=== PATIENT | female | born 1950 | race Caucasian/White ===

== ENCOUNTER 2016-04-24 16:37 | Observation (INO) | payer MEDICARE, OTHER ==
[~2016-04-24] VITALS: Ht 165.1 cm; Wt 102.2 kg
[2016-04-24] MEDS ORDERED: ONDANSETRON INJ 2 MG/ML 2 ML VIAL IV STA (17:04)
[2016-04-24] MEDS ORDERED: SODIUM CHLORIDE 0.9% 500ML 500 ML IV STA (17:04)
[2016-04-24] MEDS ORDERED: METHYLPREDNISOLONE 125 MG VIAL IV STA (17:04)
[2016-04-24] MEDS ORDERED: LORAZEPAM 2 MG/ML 1 ML VIAL IV STA (17:04)
[2016-04-24 17:11] LABS: BASO % 0.7 %; BASO ABS # 0.07 K/uL (0-0.2); COMPLETE YES; EOS % 2.7 %; HEMATOCRIT 39.1 % (37-47); IG% 0.2 %; LYMPH % 32.7 %; LYMPH ABS # 3.06 K/uL (1.2-3.4); MEAN CELL VOLUME 86.3 fL (80-100); MEAN CORPUSCULAR HEMOGLOBIN 29.6 pg (25-34); MEAN CORPUSCULAR HGB CONC 34.3 g/dl (32-36); MEAN PLATELET VOLUME 10.2 fL (7.4-10.4); MONO % 9.2 %; NEUT % 54.5 %; PLATELET COUNT 252 K/uL (130-400); RED BLOOD COUNT 4.53 M/uL (4.2-5.4); WHITE BLOOD COUNT 9.37 K/uL (4.8-10.8)
[2016-04-24] MEDS ORDERED: ATEN25TA PO (17:23)
[2016-04-24] MEDS ORDERED: NIFE60TA57 PO (17:23)
[2016-04-24 17:28] LABS: ALT/SGPT 11 U/L (12-78); BLOOD UREA NITROGEN 21 mg/dl (7-18); BUN/CREATININE RATIO 22.1 (10-20); CARBON DIOXIDE 25 mmol/L (21-32); CHLORIDE 103 mmol/L (98-107); CREATININE 0.94 mg/dl (0.60-1.20); GLUCOSE 111 mg/dl (70-99); MAGNESIUM 2.1 mg/dl (1.8-2.4); POTASSIUM 3.6 mmol/L (3.5-5.1); SODIUM 140 mmol/L (136-145)
[2016-04-24 17:33] LABS: ALKALINE PHOSPHATASE 96 U/L (45-117); AST/SGOT 18 U/L (15-37); CKMB/CK RATIO 1.5 (0-3.0)
--- NOTE | 2016-04-24 17:35 | DIAGNOSTIC IMAGING REPORT ---
HEAD CT NONCONTRAST CT DOSE: 623.48 mGy.cm HISTORY: HTN, dizzy, vomiting TECHNIQUE: Multiaxial CT images of the head were performed without the use of intravenous contrast. Automated exposure control was utilized for this study. Comparison: None. Findings: The paranasal sinuses and mastoid air cells are clear. The calvarium and skull base are intact. The ventricles and sulci are within normal limits. There is no mass, hematoma, midline shift, or acute infarct. Impression: No acute intracranial abnormality. Electronically signed by: Jitendra Moncada M.D. 04/24/2016 5:34 PM Dictated Date/Time: 04/24/2016 5:32 PM
[2016-04-24] MEDS ORDERED: CALC500C70 PO (17:43)
--- NOTE | 2016-04-24 17:43 | EMERGENCY ROOM VISIT NOTE ---
History Report prepared by Jairo: Heavenly Ramesh Under the Supervision of: Dr. Elaine An M.D. First contact with patient: 16:52 Chief Complaint: DIZZY Stated Complaint: VOMITING,DIZZINESS,HBP Nursing Triage Summary: see triage note History of Present Illness The patient is a 65 year old female who presents to the Emergency Room with complaints of worsening dizziness that began about 2 hours [employer]. The patient felt to be in her normal state of health when she woke up. She did develop some mid back discomfort that felt muscular and went away after taking ibuprofen, a hot bath, and having her massage the area. 2 hours ago, she felt slightly dizzy but decided to go for a walk. While walking she got increasingly dizzy, nauseated, and had a hard time walking. She was able to get home but was staggering and had room spinning dizziness. When she got home her took her blood pressure which was high compared to baseline. She does have a history of hypertension and is on medication. She had her blood pressure checked a month ago and it was normal. She currently still feels very dizzy and nauseated. The patient states that her pupils have been equal. She denies speech difficulty, confusion, fevers, recent colds or URIs, or other complaints. Source of History: patient Onset: 2 hours [employer] Position: other (Global) Quality: other (room spinning dizziness) Timing: worsening Associated Symptoms: + nausea, No fevers Note: Other symptoms: staggering gait, high blood pressure Review of Systems See HPI for pertinent positives & negatives. A total of 10 systems reviewed and were otherwise negative. Past Medical & Surgical Medical Problems: (1) HTN (hypertension) (2) Vertigo Family History No pertinent family history stated. Social History Smoking Status: Never Smoker Marital Status: Housing Status: lives with significant other Occupation Status: retired Current/Historical Medications Scheduled Atenolol (Tenormin), 25 MG PO DAILY Calcium/Vitamin D (Os-Lol[place] 500 Plus D), 1 TAB PO DAILY Nifedipine Ext Rel (Procardia Xl Ext Rel), 60 MG PO DAILY Allergies Coded Allergies: Acetaminophen (Unverified Adverse Reaction, Intermediate, NAUSEA/VOMITTING , 04/24/16) Propoxyphene (Unverified Adverse Reaction, Intermediate, NAUSEA/VOMITTING , 04/24/16) Physical Exam Vital Signs Date Time Temp Pulse Resp B/P Pulse Ox O2 Delivery O2 Flow Rate FiO2 04/24/16 18:59 63 153/81 04/24/16 18:57 66 15 04/24/16 18:29 135/65 04/24/16 18:27 64 15 04/24/16 18:22 62 14 04/24/16 17:59 130/66 Room Air 04/24/16 17:52 63 14 04/24/16 17:34 121/74 04/24/16 17:17 71 20 04/24/16 17:13 173/84 04/24/16 17:12 85 16 96 Room Air 04/24/16 17:07 73 22 04/24/16 17:04 194/105 04/24/16 17:02 71 17 04/24/16 16:57 69 13 04/24/16 16:54 72 04/24/16 16:41 36.5 72 16 189/91 98 Room Air Physical Exam Vital signs reviewed. General: Obese, well-appearing 65 year old female, in no significant distress. Noted to be hypertensive. HEENT: No scleral icterus, PERRLA, horizontal nystagmus, neck supple. Atraumatic. Cardiovascular: Regular rate and rhythm, no extra sounds. Pulmonary: Clear to auscultation bilaterally, normal work of breathing. Abdomen: Soft, nontender, nondistended, positive bowel sounds. Musculoskeletal: Atraumatic, no peripheral edema. Neurologic: Patient awake alert and oriented x 3, full strength in all 4 extremities. Cranial nerves 2 through 12 grossly intact. Skin: Warm, dry, no rash Medical Decision & Procedures ER Provider Diagnostic Interpretation: X-ray results as stated below per my interpretation and radiologist interpretation. Other radiology results as stated below per my review and radiologist interpretation: HEAD CT NONCONTRAST CT DOSE: 623.48 mGy.cm HISTORY: HTN, dizzy, vomiting TECHNIQUE: Multiaxial CT images of the head were performed without the use of intravenous contrast. Automated exposure control was utilized for this study. Comparison: None. Findings: The paranasal sinuses and mastoid air cells are clear. The calvarium and skull base are intact. The ventricles and sulci are within normal limits. There is no mass, hematoma, midline shift, or acute infarct. Impression: No acute intracranial abnormality. Electronically signed by: Jitendra Moncada M.D. 04/24/2016 5:34 PM Dictated Date/Time: 04/24/2016 5:32 PM CHEST ONE VIEW PORTABLE HISTORY: dizzy, vomiting COMPARISON: None. FINDINGS: The heart is borderline enlarged. Mildly tortuous thoracic aorta. The lungs are clear. No pleural effusions. No pneumothorax. IMPRESSION: Borderline enlargement of the cardiac silhouette. Otherwise, no acute process within the chest. Electronically signed by: Jitendra Moncada M.D. 04/24/2016 5:58 PM Dictated Date/Time: 04/24/2016 5:57 PM Laboratory Results 04/24/16 17:00 Red Blood Count 4.53, Mean Corpuscular Volume 86.3, Mean Corpuscular Hemoglobin 29.6, Mean Corpuscular Hemoglobin Concent 34.3, Mean Platelet Volume 10.2, Neutrophils (%) (Auto) 54.5, Lymphocytes (%) (Auto) 32.7, Monocytes (%) (Auto) 9.2, Eosinophils (%) (Auto) 2.7, Basophils (%) (Auto) 0.7, Neutrophils # (Auto) 5.11, Lymphocytes # (Auto) 3.06, Monocytes # (Auto) 0.86, Eosinophils # (Auto) 0.25, Basophils # (Auto) 0.07 04/24/16 17:00 Test 04/24/16 17:00 04/24/16 19:41 White Blood Count 9.37 K/uL (4.8-10.8) Red Blood Count 4.53 M/uL (4.2-5.4) Hemoglobin 13.4 g/dL (12.0-16.0) Hematocrit 39.1 % (37-47) Mean Corpuscular Volume 86.3 fL (80-100) Mean Corpuscular Hemoglobin 29.6 pg (25-34) Mean Corpuscular Hemoglobin Concent 34.3 g/dl (32-36) Platelet Count 252 K/uL (130-400) Mean Platelet Volume 10.2 fL (7.4-10.4) Neutrophils (%) (Auto) 54.5 % Lymphocytes (%) (Auto) 32.7 % Monocytes (%) (Auto) 9.2 % Eosinophils (%) (Auto) 2.7 % Basophils (%) (Auto) 0.7 % Neutrophils # (Auto) 5.11 K/uL (1.4-6.5) Lymphocytes # (Auto) 3.06 K/uL (1.2-3.4) Monocytes # (Auto) 0.86 K/uL (0.11-0.59) Eosinophils # (Auto) 0.25 K/uL (0-0.5) Basophils # (Auto) 0.07 K/uL (0-0.2) RDW Standard Deviation 46.9 fL (36.4-46.3) RDW Coefficient of Variation 14.8 % (11.5-14.5) Immature Granulocyte % (Auto) 0.2 % Immature Granulocyte # (Auto) 0.02 K/uL (0.00-0.02) Prothrombin Time 10.7 SECONDS (9.0-12.0) Prothromb Time International Ratio 1.0 (0.9-1.1) Activated Partial Thromboplast Time 26.6 SECONDS (21.0-31.0) Partial Thromboplastin Ratio 1.0 Anion Gap 12.0 mmol/L (3-11) Est Creatinine Clear Calc Drug Dose 68.4 ml/min Estimated GFR () 73.8 Estimated GFR (Non- 63.7 BUN/Creatinine Ratio 22.1 (10-20) Calcium Level 9.0 mg/dl (8.5-10.1) Magnesium Level 2.1 mg/dl (1.8-2.4) Total Bilirubin 0.4 mg/dl (0.2-1) Direct Bilirubin < 0.1 mg/dl (0-0.2) Aspartate Amino Transf (AST/SGOT) 18 U/L (15-37) Alanine Aminotransferase (ALT/SGPT) 11 U/L (12-78) Alkaline Phosphatase 96 U/L (45-117) Total Creatine Kinase 62 U/L (26-192) Creatine Kinase MB 0.9 ng/ml (0.5-3.6) Creatine Kinase MB Ratio 1.5 (0-3.0) Total Protein 7.6 gm/dl (6.4-8.2) Albumin 3.9 gm/dl (3.4-5.0) Urine Color ORANGE Urine Appearance CLEAR (CLEAR) Urine pH 7.0 (4.5-7.5) Urine Specific [place] 1.010 (1.000-1.030) Urine Protein NEG (NEG) Urine Glucose (UA) NEG (NEG) Urine Ketones TRACE (NEG) Urine Occult Blood NEG (NEG) Urine Nitrite NEG (NEG) Urine Bilirubin NEG (NEG) Urine Urobilinogen NEG (NEG) Urine Leukocyte Esterase NEG (NEG) Laboratory results per my review. Medications Administered Medications (Trade) Dose Ordered Sig/Andres Route Start Time Stop Time Status Last Admin Dose Admin Ondansetron HCl (Zofran Inj) 4 mg NOW STAT IV 04/24/16 17:04 04/24/16 17:07 DC 04/24/16 17:15 4 MG Lorazepam (Ativan Inj) 1 mg NOW STAT IV 04/24/16 17:04 04/24/16 17:07 DC 04/24/16 17:15 1 MG Methylprednisolone Sodium Succinate 125 mg 125 mg NOW STAT IV 04/24/16 17:04 04/24/16 17:07 DC 04/24/16 17:16 125 MG Sodium Chloride (Nss 500ml) 500 ml @ 999 mls/hr Q31M STAT IV 04/24/16 17:04 04/24/16 17:34 DC 04/24/16 17:15 999 MLS/HR Meclizine HCl 25 mg 25 mg NOW STAT PO 04/24/16 18:42 04/24/16 18:43 DC 04/24/16 19:09 25 MG Sodium Chloride (Nss 1000ml) 1,000 ml @ 80 mls/hr [id number] IV 04/24/16 20:41 05/24/16 20:40 04/24/16 22:11 80 MLS/HR ECG Indication: other (dizzy) Rate (beats per minute): 72 Rhythm: sinus rhythm Findings: 1st degree AV block, no acute ischemic change, no ectopy, other ( previous inferior infarct) ED Course 1654: The patient was evaluated in room A12. A complete history and physical examination was performed. 1841: Ordered Meclizine HCl 25 mg PO. 1703: Ordered NSS 500 ml @ 999 mls/hr IV, Solu-Medrol 125 mg IV, Ativan 1 mg IV , Zofran Inj 4 mg IV. 1954: Upon reevaluation, the patient has still been feeling dizzy and vomited. I discussed laboratory and radiographic results with her. She verbalized agreement of the treatment plan. 1999: [facility] The patient will be evaluated for further management and care. Medical Decision Differential diagnosis: Etiologies such as benign positional vertigo, dehydration, hypovolemia, anemia, tumor, infection, hypoglycemia, electrolyte abnormalities, cardiac sources, intracerebral event, toxicologic, neurologic, as well as others were entertained. This patient was evaluated and appeared to be in some discomfort. IV access was obtained and laboratory work was drawn. Patient was placed on the monitoring tech and found to be in a first-degree AV block. She was hydrated with normal saline solution. The patient was given IV Zofran, IV Ativan and IV Solu- Medrol. CT scan of the head was performed and is negative for acute intracranial pathology. Patient's laboratory work is fairly unrevealing. The patient continued to be nauseated and vertiginous. She was given oral meclizine. Patient attempted to ambulate to the bathroom however nursing staff states she is unsteady and running into the taylor despite assistance. She did vomit shortly afterwards. Case was discussed with the hospitalist service. Patient will be evaluated for further management. She and her are aware of the plan and agree. Consults Time Called: 1948 Consulting Physician: [facility] Returned Call: [address] [facility] The patient will be evaluated for further management and care. Impression Primary Impression: Unsteady gait Additional Impressions: Vertigo, Intractable vomiting Scribe Attestation The scribe's documentation has been prepared under my direction and personally reviewed by me in its entirety. I confirm that the note above accurately reflects all work, treatment, procedures, and medical decision making performed by me. Departure Information Dispostion Being Evaluated By Hospitalist Referrals Cheryle Becerra (PCP) Patient Instructions A Signature Page, My [facility]
--- NOTE | 2016-04-24 18:00 | DIAGNOSTIC IMAGING REPORT ---
CHEST ONE VIEW PORTABLE HISTORY: dizzy, vomiting COMPARISON: None. FINDINGS: The heart is borderline enlarged. Mildly tortuous thoracic aorta. The lungs are clear. No pleural effusions. No pneumothorax. IMPRESSION: Borderline enlargement of the cardiac silhouette. Otherwise, no acute process within the chest. Electronically signed by: Jitendra Moncada M.D. 04/24/2016 5:58 PM Dictated Date/Time: 04/24/2016 5:57 PM
[2016-04-24] MEDS ORDERED: MECLIZINE HCL 25 MG TAB PO STA ×2 (18:42→22:08)
[2016-04-24 20:00] LABS: URINE APPEARANCE CLEAR (CLEAR); URINE BILIRUBIN NEG (NEG); URINE COLOR ORANGE; URINE NITRITE NEG (NEG); UROBILINOGEN NEG (NEG); ZZUR CULT IF INDIC CLEAN CATCH NO
[2016-04-24 20:01] LABS: MANUAL MICROSCOPIC REQUIRED? NO; REVIEW REQ? NO
[2016-04-24] MEDS ORDERED: MAGNESIUM HYDROXIDE SUSP 30 ML UDC PO PRN (20:45)
[2016-04-24] MEDS ORDERED: ALUMINUM/MAGNESIUM/SIMETH (MAALOX MAX) 30 ML UDC PO PRN (20:45)
[2016-04-24] MEDS ORDERED: POLYETHYLENE (MIRALAX) 17 GM PACK PO PRN (20:45)
[2016-04-24 21:12] LABS: PROTHROMBIN TIME (PATIENT) 10.7 SECONDS (9.0-12.0)
[2016-04-24] MEDS ORDERED: IV FLUIDS COMPLETED PRN (21:45)
[2016-04-24] MEDS ORDERED: HydrALAZINE HCL 20 MG/ML VIAL IV. STA (21:52)
[2016-04-24] MEDS ORDERED: HydrALAZINE HCL 20 MG/ML VIAL ONE (21:57)
[2016-04-24 22:00] VITALS: BP 175/111; PULSE 70; TEMP 36.4; O2SAT 97; Ht 165.1 cm; Wt 102.2 kg
[2016-04-24] MEDS ORDERED: MECLIZINE HCL 25 MG TAB PO PRN (22:00)
[2016-04-24] MEDS: SODIUM CHLORIDE 0.9% 1000ML 1,000 ML IV SCH (22:11)
--- NOTE | 2016-04-24 22:12 | History and Physical ---
History & Physical Date & Time of Service: Apr 24, 2016 at 21:59 Chief Complaint: Vertigo Primary Care Physician: Cheryle Becerra History of Present Illness Source: patient, clinic records, hospital records This is a 65 year old female with PMH of HTN states that today she suddenly developed dizziness and balance problems. States that around 3 PM this afternoon (04/24/16) - she was working outside and suddenly became very dizzy. She waited a few minutes and felt better, so she went to go to her mailbox. On her driveway on the way to the mailbox she developed more dizziness and was not walking straight, and was talking in more of a "Z" pattern. She had no other symptoms, no speech abnormality, no vision abnormality, no muscle weakness on either side; dizziness persisted here in the ER; she was given meclizine, zofran , solu-medrol - attempted to walk again, but was walking into the taylor and doors and continued to feel dizzy. Past Medical/Surgical History Medical Problems: (1) HTN (hypertension) Status: Chronic Social History Smoking Status: Never Smoker Marital Status: Occupational Status: retired Allergies Coded Allergies: Acetaminophen (Unverified Adverse Reaction, Intermediate, NAUSEA/VOMITTING , 04/24/16) Propoxyphene (Unverified Adverse Reaction, Intermediate, NAUSEA/VOMITTING , 04/24/16) Home Medications Scheduled Atenolol (Tenormin), 25 MG PO DAILY Calcium/Vitamin D (Os-Lloyd 500 Plus D), 1 TAB PO DAILY Nifedipine Ext Rel (Procardia Xl Ext Rel), 60 MG PO DAILY Review of Systems Constitutional: No chills, No fever Eyes: No diplopia, No eye pain ENT: No hearing loss, No nasal symptoms, No sore throat, No tinnitus, No trouble swallowing, No unusual epistaxis Respiratory: No cough, No dyspnea on exertion, No shortness of breath, No sputum Cardiovascular: No chest pain, No edema, No orthopnea, No palpitations Abdomen: No diarrhea, No nausea, No pain, No vomiting Genitourinary - Female: No dysuria, No hematuria, No urinary frequency, No urinary incontinence, No urinary retention, No urinary urgency Neurologic: + balance problems, + vertigo, No memory loss, No numbness/tingling , No weakness Psychiatric: No anxiety, No depression symptoms Endocrine: No excessive thirst, No excessive urination, No fatigue Hematologic / Lymphatic: No abnormal bleeding/bruising Integumentary: No rash Allergic / Immunologic: No environmental allergies, No seasonal allergies Physical Exam Vital Signs Date Time Temp Pulse Resp B/P Pulse Ox O2 Delivery O2 Flow Rate FiO2 04/24/16 21:22 71 14 152/78 94 04/24/16 21:05 71 14 152/78 94 Room Air 04/24/16 18:59 63 153/81 04/24/16 18:57 66 15 04/24/16 18:29 135/65 04/24/16 18:27 64 15 04/24/16 18:22 62 14 04/24/16 17:59 130/66 Room Air 04/24/16 17:52 63 14 04/24/16 17:34 121/74 04/24/16 17:17 71 20 04/24/16 17:13 173/84 04/24/16 17:12 85 16 96 Room Air 04/24/16 17:07 73 22 04/24/16 17:04 194/105 04/24/16 17:02 71 17 04/24/16 16:57 69 13 04/24/16 16:54 72 04/24/16 16:41 36.5 72 16 189/91 98 Room Air General Appearance: no apparent distress Head: normocephalic, atraumatic Eyes: normal inspection ENT: hearing grossly normal Neck: supple Respiratory/Chest: lungs clear, normal breath sounds, no respiratory distress, no accessory muscle use Cardiovascular: regular rate, rhythm, no edema, no murmur Abdomen/GI: normal bowel sounds, non tender, soft Back: no muscle spasm Neurologic/Psych: rubber down II-XII nml as tested, no motor/sensory deficits, alert, normal mood/affect, oriented x 3 Skin: normal color Lymphatic: no adenopathy Diagnostics Laboratory Results Results Past 24 Hours Test 04/24/16 17:00 04/24/16 19:41 Range/Units White Blood Count 9.37 4.8-10.8 K/uL Red Blood Count 4.53 4.2-5.4 M/uL Hemoglobin 13.4 12.0-16.0 g/dL Hematocrit 39.1 37-47 % Mean Corpuscular Volume 86.3 80-100 fL Mean Corpuscular Hemoglobin 29.6 25-34 pg Mean Corpuscular Hemoglobin Concent 34.3 32-36 g/dl Platelet Count 252 130-400 K/uL Mean Platelet Volume 10.2 7.4-10.4 fL Neutrophils (%) (Auto) 54.5 % Lymphocytes (%) (Auto) 32.7 % Monocytes (%) (Auto) 9.2 % Eosinophils (%) (Auto) 2.7 % Basophils (%) (Auto) 0.7 % Neutrophils # (Auto) 5.11 1.4-6.5 K/uL Lymphocytes # (Auto) 3.06 1.2-3.4 K/uL Monocytes # (Auto) 0.86 0.11-0.59 K/uL Eosinophils # (Auto) 0.25 0-0.5 K/uL Basophils # (Auto) 0.07 0-0.2 K/uL RDW Standard Deviation 46.9 36.4-46.3 fL RDW Coefficient of Variation 14.8 11.5-14.5 % Immature Granulocyte % (Auto) 0.2 % Immature Granulocyte # (Auto) 0.02 0.00-0.02 K/uL Prothrombin Time 10.7 9.0-12.0 SECONDS Prothromb Time International Ratio 1.0 0.9-1.1 Activated Partial Thromboplast Time 26.6 21.0-31.0 SECONDS Partial Thromboplastin Ratio 1.0 Sodium Level 140 136-145 mmol/L Potassium Level 3.6 3.5-5.1 mmol/L Chloride Level 103 98-107 mmol/L Carbon Dioxide Level 25 21-32 mmol/L Anion Gap 12.0 3-11 mmol/L Blood Urea Nitrogen 21 7-18 mg/dl Creatinine 0.94 0.60-1.20 mg/dl Est Creatinine Clear Calc Drug Dose 68.4 ml/min Estimated GFR () 73.8 Estimated GFR (Non- 63.7 BUN/Creatinine Ratio 22.1 10-20 Random Glucose 111 70-99 mg/dl Calcium Level 9.0 8.5-10.1 mg/dl Magnesium Level 2.1 1.8-2.4 mg/dl Total Bilirubin 0.4 0.2-1 mg/dl Direct Bilirubin < 0.1 0-0.2 mg/dl Aspartate Amino Transf (AST/SGOT) 18 15-37 U/L Alanine Aminotransferase (ALT/SGPT) 11 12-78 U/L Alkaline Phosphatase 96 45-117 U/L Total Creatine Kinase 62 26-192 U/L Creatine Kinase MB 0.9 0.5-3.6 ng/ml Creatine Kinase MB Ratio 1.5 0-3.0 Total Protein 7.6 6.4-8.2 gm/dl Albumin 3.9 3.4-5.0 gm/dl Urine Color ORANGE Urine Appearance CLEAR CLEAR Urine pH 7.0 4.5-7.5 Urine Specific [place] 1.010 1.000-1.030 Urine Protein NEG NEG Urine Glucose (UA) NEG NEG Urine Ketones TRACE NEG Urine Occult Blood NEG NEG Urine Nitrite NEG NEG Urine Bilirubin NEG NEG Urine Urobilinogen NEG NEG Urine Leukocyte Esterase NEG NEG Diagnostic Radiology CHEST ONE VIEW PORTABLE HISTORY: dizzy, vomiting COMPARISON: None. FINDINGS: The heart is borderline enlarged. Mildly tortuous thoracic aorta. The lungs are clear. No pleural effusions. No pneumothorax. IMPRESSION: Borderline enlargement of the cardiac silhouette. Otherwise, no acute process within the chest. HEAD CT NONCONTRAST CT DOSE: 623.48 mGy.cm HISTORY: HTN, dizzy, vomiting TECHNIQUE: Multiaxial CT images of the head were performed without the use of intravenous contrast. Automated exposure control was utilized for this study. Comparison: None. Findings: The paranasal sinuses and mastoid air cells are clear. The calvarium and skull base are intact. The ventricles and sulci are within normal limits. There is no mass, hematoma, midline shift, or acute infarct. Impression: No acute intracranial abnormality. EKG NSR; first degree AV block Impression Assessment and Plan This is a 65 year old female with PMH of HTN developed vertigo Vertigo -->patient with dizziness; difficulty with ambulation -->will monitor on tele -->first degree AV block noted on EKG, monitor for any paused/skipped beats -->PT evaluation - [place]-[facility] -->orthostatic vitals -->Initial Head CT negative -->obtain a brain MRI/MRA head/neck to r/o CVA -->echo ordered -->meclizine PRN -->benadryl PRN -->IVFs - slightly dehydrated -->zofran PRN for nausea Uncontrolled HTN -->patient takes atenolol and nifedipine -->has been on these medications for years and they have controlled her pressures -->will continue these -->hydralazine x 1 given secondary to uncontrolled blood pressures DVT ppx -->subq heparin FULL CODE observation status - d/c if w/up negative and ambulation improves VTE Prophylaxis VTE Risk Assessment Done? Y/N: Yes Risk Level: Moderate
[2016-04-24] MEDS: HEPARIN SOD 5000 UNIT/0.5 ML CARP SQ SCH (22:37)
[2016-04-24 23:39] VITALS: BP 159/91; PULSE 82; TEMP 36.6; O2SAT 97
[2016-04-25] VITALS (7 sets, daily range): BP systolic 148–171; BP diastolic 61–94; PULSE 67–95; TEMP 36.6–36.7; O2SAT 92–97
[2016-04-25 02:47] LABS: HEMATOCRIT 40.4 % (37-47); MEAN CELL VOLUME 85.1 fL (80-100); MEAN CORPUSCULAR HEMOGLOBIN 29.3 pg (25-34); MEAN CORPUSCULAR HGB CONC 34.4 g/dl (32-36); MEAN PLATELET VOLUME 10.3 fL (7.4-10.4); PLATELET COUNT 266 K/uL (130-400); RED BLOOD COUNT 4.75 M/uL (4.2-5.4); WHITE BLOOD COUNT 10.55 K/uL (4.8-10.8)
[2016-04-25 03:18] LABS: CALCIUM 8.7 mg/dl (8.5-10.1); CREATININE 0.75 mg/dl (0.60-1.20); MAGNESIUM 2.3 mg/dl (1.8-2.4); POTASSIUM 4.7 mmol/L (3.5-5.1)
[2016-04-25 03:24] LABS: CKMB/CK RATIO 4.7 (0-3.0); THYROID STIMULATING HORMONE 0.862 uIu/ml (0.300-4.500)
[2016-04-25] MEDS: ONDANSETRON INJ 2 MG/ML 2 ML VIAL IV PRN ×2 (03:28→09:16)
[2016-04-25] MEDS ORDERED: AMLODIPINE BESYLATE 5 MG TAB PO ONE (03:45)
[2016-04-25] MEDS ORDERED: PROMETHAZINE HCL INJ 25 MG in SODIUM CHLORIDE 0.9% 50ML 50 ML IV STA (04:31)
[2016-04-25] MEDS ORDERED: ENALAPRILAT IV 1.25 MG in DEXTROSE 5% 25ML 25 ML IV STA (04:32)
[2016-04-25] MEDS ORDERED: HydrALAZINE HCL 20 MG/ML VIAL IV. STA (04:32)
[2016-04-25] MEDS: HEPARIN SOD 5000 UNIT/0.5 ML CARP SQ SCH ×2 (04:56→13:52)
[2016-04-25] MEDS ORDERED: NIFEdipine 30 MG CR TAB PO SCH (09:00)
[2016-04-25] MEDS ORDERED: ASPIRIN 81 MG ECTAB PO SCH (09:00)
[2016-04-25 09:28] LABS: CKMB/CK RATIO 5.1 (0-3.0)
[2016-04-25] MEDS ORDERED: HYDROmorphone INJ 0.5 MG/0.5 ML SYR IV STA (09:55)
[2016-04-25] MEDS ORDERED: HYDROmorphone INJ 0.5 MG/0.5 ML SYR IV PRN (10:00)
[2016-04-25] MEDS: SODIUM CHLORIDE 0.9% 1000ML 1,000 ML IV SCH (12:11)
[2016-04-25 12:47] LABS: INFLUENZA A PCR Neg for Influ A (NEG); INFLUENZA B PCR Neg for Influ B (NEG)
[2016-04-25 15:17] LABS: CKMB/CK RATIO 4.5 (0-3.0)
--- NOTE | 2016-04-25 15:27 | ECHOCARDIOGRAM REPORT ---
*NOTICE TO RECEIVING REPUBLICAN AGENCY This information is strictly Confidential and protected under [place] law. [place] law prohibits you from making any further disclosure of this information unless further disclosure is expressly permitted by the written consent of the person to whom it pertains or is authorized by law. A general authorization for the release of medical or other information is not sufficient for this purpose. Hospital accepts no responsibility if the information is made available to any other person, INCLUDING THE PATIENT. Interpretation Summary * Name: NIKHIL HICKS Study Date: 04/25/2016 06:39 AM BP: 171/97 mmHg * Patient Location: C.2T\S\S239\S\2 HR: 94 * : 1950 (M/d/yyyy) Gender: Female Height: 65 in * Age: 65 yrs Ethnicity: [place] Weight: 211 lb * Ordering Physician: Pura Armendariz * Referring Physician: Self, Referred * Performed By: Maurisio Rivera RDCS * * Reason For Study: Syncope * BSA: 2.0 m2 * -- Conclusions -- * The left ventricular wall motion is normal. * The LV Ejection Fraction = 55-60%. * The right ventricular chamber size and systolic function is normal. * Grade I diastolic dysfunction, (abnormal relaxation pattern). * There is no significant valvular heart disease. * There is no prior study available for comparison. Procedure Details * A complete two-dimensional transthoracic echocardiogram was performed (2D, M-mode, Doppler and color flow Doppler). * The study was technically adequate. Left Ventricle * The left ventricle is normal in size. * There is normal left ventricular wall thickness. * Left ventricular systolic function is normal. * Ejection Fraction = 55-60%. * The left ventricular wall motion is normal. Right Ventricle * The right ventricle is normal size. * The right ventricular systolic function is normal as assessed by tricuspid annular plane systolic excursion (TAPSE) (normal >1.5 cm). Atria * The left atrial size is normal. * Right atrial size is normal. * There is no evidence of atrial septal defect, but resolution does not allow assessment for a patent foramen ovale. Mitral Valve * The mitral valve is normal. * There is no mitral valve stenosis. * Significant mitral regurgitation is absent. Tricuspid Valve * The tricuspid valve is normal. * There is no tricuspid stenosis. * Significant tricuspid regurgitation is absent. Aortic Valve * The aortic valve is trileaflet. * Aortic stenosis is absent. * There is no significant aortic regurgitation. Pulmonic Valve * The pulmonary valve is not well seen, but the Doppler examination is normal without significant regurgitation or stenosis. Great Vessels * The aortic root and proximal ascending aorta are normal sized. Pericardium/Pleural * There is no pericardial effusion. Great Vessels * Normal inferior vena cava diameter and respiratory variation suggests normal central venous pressure. * Normal inferior vena cava size and collapsability with sniff indicates a normal right atrial pressure of 3 mmHg Left Ventricular Diastolic Function * Grade I diastolic dysfunction, (abnormal relaxation pattern). MMode 2D Measurements and Calculations IVSd 0.92 cm IVSs 1.4 cm LVIDd 5.2 cm LVIDs 3.3 cm LVPWd 1.0 cm LVPWs 1.4 cm IVS/LVPW 0.89 FS 37.2 % EDV(Teich) 130.2 ml ESV(Teich) 43.3 ml EF(Teich) 66.8 % EDV(cubed) 141.5 ml ESV(cubed) 35.1 ml EF(cubed) 75.2 % % IVS thick 57.6 % % LVPW thick 40.0 % LV mass(C)d 187.6 grams LV mass(C)dI 92.7 grams/m\S\2 LV mass(C)s 165.5 grams LV mass(C)sI 81.8 grams/m\S\2 SV(Teich) 86.9 ml SI(Teich) 42.9 ml/m\S\2 SV(cubed) 106.5 ml SI(cubed) 52.6 ml/m\S\2 Ao root diam 3.1 cm Ao root area 7.4 cm\S\2 ACS 1.7 cm LA dimension 4.6 cm asc Aorta Diam 3.5 cm LA/Ao 1.5 LVOT diam 1.9 cm LVOT area 2.7 cm\S\2 LVAd ap4 23.2 cm\S\2 LVLd ap4 7.5 cm EDV(MOD-sp4) 59.0 ml LVAs ap4 11.1 cm\S\2 LVLs ap4 6.0 cm ESV(MOD-sp4) 18.0 ml EF(MOD-sp4) 69.5 % LVAd ap2 21.2 cm\S\2 LVLd ap2 7.5 cm EDV(MOD-sp2) 50.0 ml LVAs ap2 10.6 cm\S\2 LVLs ap2 6.1 cm ESV(MOD-sp2) 16.0 ml EF(MOD-sp2) 68.0 % SV(MOD-sp4) 41.0 ml SI(MOD-sp4) 20.3 ml/m\S\2 SV(MOD-sp2) 34.0 ml SI(MOD-sp2) 16.8 ml/m\S\2 Doppler Measurements and Calculations MV E max mack 80.2 cm/sec MV A max mack 142.5 cm/sec MV E/A 0.56 MV dec time 0.16 sec Ao V2 max 220.3 cm/sec Ao max PG 19.5 mmHg Ao max PG (full) 10.3 mmHg PATRICE(V,A) 1.9 cm\S\2 PATRICE(V,D) 1.9 cm\S\2 LV V1 max PG 9.2 mmHg LV V1 max 151.5 cm/sec PA V2 max 150.4 cm/sec PA max PG 9.0 mmHg
--- NOTE | 2016-04-25 15:51 | DIAGNOSTIC IMAGING REPORT ---
MRI OF THE BRAIN WITHOUT CONTRAST CLINICAL HISTORY: Vertigo. Stroke-like symptoms. Evaluate for cerebrovascular accident. COMPARISON STUDY: Head CT April 24, 2016. TECHNIQUE: Utilizing a 1.5 Kaycee magnet and dedicated coil, multiplanar, multiecho imaging of the brain was performed without IV contrast. FINDINGS: There are no areas of restricted diffusion. No acute intracranial hemorrhage, midline shift or mass effect is present. Brain volume is normal for age. Ventricular system is normal. The basilar cisterns are patent. There are no extra-axial collections. Flow-voids for the major intracranial vessels are present. No intracranial masses are identified on this unenhanced exam. Calvarial signal is maintained. Orbits and sinuses are unremarkable. There is no fluid within the mastoid air cells. A few punctate foci of signal abnormality are shown within the white matter on the T2-weighted sequences. IMPRESSION: 1. No acute intracranial findings. 2. A few punctate foci of signal abnormality within the white matter suggestive of minimal small vessel disease. Electronically signed by: Wes Alonso M.D. 04/25/2016 3:49 PM Dictated Date/Time: 04/25/2016 3:45 PM
--- NOTE | 2016-04-25 16:27 | DIAGNOSTIC IMAGING REPORT ---
MRA OF THE NECK WITH AND WITHOUT CONTRAST CLINICAL HISTORY: Vertigo. Stroke like symptoms. COMPARISON STUDY: None. TECHNIQUE: Unenhanced and contrast-enhanced MRA of the neck was performed. Injection of 20 mL of Magnevist IV was uneventful. NASCET criteria were utilized to estimate the degree of carotid stenosis. FINDINGS: The bilateral common carotid, internal carotid and vertebral arteries are patent. No stenosis is identified. There is minimal vascular irregularity due to atherosclerosis. There is no evidence for dissection. The caliber of the aortic arch is normal. IMPRESSION: Unremarkable MRA of the neck. No significant stenosis. Electronically signed by: Wes Alonso M.D. 04/25/2016 4:25 PM Dictated Date/Time: 04/25/2016 4:21 PM
--- NOTE | 2016-04-25 16:27 | DIAGNOSTIC IMAGING REPORT ---
MRA OF THE INTRACRANIAL CIRCULATION WITHOUT CONTRAST CLINICAL HISTORY: Stroke like symptoms. Vertigo. COMPARISON STUDY: None. TECHNIQUE: Utilizing a 1.5 Kaycee magnet and 3-D [id number] technique, unenhanced MRA of the intracranial circulation was obtained. FINDINGS: The bilateral M1, M2, A1 and A2 segments are patent. There is persistence of the left posterior cerebral artery. The posterior circulation is intact. No aneurysm or abrupt vessel cut off is identified within the intracranial circulation. IMPRESSION: Unremarkable MRA of the intracranial circulation. Electronically signed by: Wes Alonso M.D. 04/25/2016 4:25 PM Dictated Date/Time: 04/25/2016 4:13 PM
[2016-04-25] MEDS ORDERED: MAGNEVIST IV PRN (16:30)
--- NOTE | 2016-04-25 17:32 | Progress Note ---
Internal Med Progress Note Date of Service: Apr 25, 2016. Provider Documentation: SUBJECTIVE: still has vertigo and blurred vision but getting better has headache afebrile denies chest pain or sob anxious because of the symptoms OBJECTIVE: Vital Signs-as noted below Exam: General-alert and oriented x 3 ENT-normal hearing Neck-no neck masses Lungs-cta b/l no wheezing or crackles Heart-s1 and s2 heard regular rate and rhythm, no murmurs Abdomen-soft bowel sounds present non tender no distension Extremities-no edema no erythema Neuro-alert and awake and oriented power 5/5 in all extremities no pronator drift speech clear coordination of movements normal finger nose test normal position sense normal sensations intact moves extremities Lab data as noted below. ASSESSMENT & PLAN: This is a 65 year old female with PMH of HTN developed vertigo Vertigo patient with dizziness and vertigo difficulty with ambulation also had double This is a 65 year old female with PMH of HTN developed vertigo Vertigo patient with dizziness, vertigo and difficulty with ambulation symptoms improving now ct head negative mri/mra head and mra neck done today unremarkable echo unremarkable monitor in tele neurochecks meclizine prn neurology consulted Uncontrolled HTN on atenolol and nifedipine anxious will monitor hydralazine prn DVT ppx subq heparin FULL CODE DISPOSITION to be determined Vital Signs: Date Time Temp Pulse Resp B/P Pulse Ox O2 Delivery O2 Flow Rate FiO2 04/25/16 12:42 36.6 71 20 160/90 96 Room Air 04/25/16 12:00 Room Air 04/25/16 08:00 Room Air 04/25/16 07:23 36.6 95 20 161/94 95 Room Air 04/25/16 04:01 97 Room Air 04/25/16 03:30 36.7 84 18 171/91 92 Room Air 04/25/16 00:00 97 Room Air 04/24/16 23:39 36.6 82 18 159/91 97 Room Air 04/24/16 22:00 36.4 70 17 175/111 97 Room Air 04/24/16 21:22 71 14 152/78 94 04/24/16 21:05 71 14 152/78 94 Room Air 04/24/16 18:59 63 153/81 04/24/16 18:57 66 15 04/24/16 18:29 135/65 04/24/16 18:27 64 15 04/24/16 18:22 62 14 04/24/16 17:59 130/66 Room Air 04/24/16 17:52 63 14 04/24/16 17:34 121/74 Lab Results: Results Past 24 Hours Test 04/24/16 19:41 04/25/16 02:41 04/25/16 08:42 04/25/16 10:25 Range/Units Urine Color ORANGE Urine Appearance CLEAR CLEAR Urine pH 7.0 4.5-7.5 Urine Specific [place] 1.010 1.000-1.030 Urine Protein NEG NEG Urine Glucose (UA) NEG NEG Urine Ketones TRACE NEG Urine Occult Blood NEG NEG Urine Nitrite NEG NEG Urine Bilirubin NEG NEG Urine Urobilinogen NEG NEG Urine Leukocyte Esterase NEG NEG White Blood Count 10.55 4.8-10.8 K/uL Red Blood Count 4.75 4.2-5.4 M/uL Hemoglobin 13.9 12.0-16.0 g/dL Hematocrit 40.4 37-47 % Mean Corpuscular Volume 85.1 80-100 fL Mean Corpuscular Hemoglobin 29.3 25-34 pg Mean Corpuscular Hemoglobin Concent 34.4 32-36 g/dl RDW Standard Deviation 45.4 36.4-46.3 fL RDW Coefficient of Variation 14.6 11.5-14.5 % Platelet Count 266 130-400 K/uL Mean Platelet Volume 10.3 7.4-10.4 fL Sodium Level 137 136-145 mmol/L Potassium Level 4.7 3.5-5.1 mmol/L Chloride Level 103 98-107 mmol/L Carbon Dioxide Level 26 21-32 mmol/L Anion Gap 8.0 3-11 mmol/L Blood Urea Nitrogen 16 7-18 mg/dl Creatinine 0.75 0.60-1.20 mg/dl Est Creatinine Clear Calc Drug Dose 87.8 ml/min Estimated GFR () 96.9 Estimated GFR (Non- 83.6 BUN/Creatinine Ratio 21.0 10-20 Random Glucose 160 70-99 mg/dl Calcium Level 8.7 8.5-10.1 mg/dl Magnesium Level 2.3 1.8-2.4 mg/dl Total Creatine Kinase 101 92 26-192 U/L Creatine Kinase MB 4.7 4.7 0.5-3.6 ng/ml Creatine Kinase MB Ratio 4.7 5.1 0-3.0 Troponin I 0.041 0.045 0-0.045 ng/ml Thyroid Stimulating Hormone (TSH) 0.862 0.300-4.500 uIu/ml Influenza Type A (RT-PCR) Neg for Influ A NEG Influenza Type B (RT-PCR) Neg for Influ B NEG Test 04/25/16 14:42 04/25/16 16:00 04/25/16 16:55 Range/Units Total Creatine Kinase 84 26-192 U/L Creatine Kinase MB 3.8 0.5-3.6 ng/ml Creatine Kinase MB Ratio 4.5 0-3.0 Troponin I 0.050 0-0.045 ng/ml
[2016-04-25 17:43] LABS: CKMB/CK RATIO 4.1 (0-3.0)
[2016-04-25] MEDS ORDERED: HydrALAZINE HCL 20 MG/ML VIAL IV. PRN (17:45)
[2016-04-25] MEDS ORDERED: ANT25 PO (18:52)
--- NOTE | 2016-04-25 18:54 | Discharge Instructions ---
Discharge Instructions Admission Reason for Admission: Vertigo Discharge Discharge Diagnosis / Problem: vertigo Discharge Goals Goal(s): Decrease discomfort, Improve function Activity Recommendations Activity Limitations: resume your previous activity . Instructions / Follow-Up Instructions / Follow-Up FOLLOWUP WITH FAMILY DOCTOR IN ONE WEEK REPORT TO ER FOR ANY CHNAGE IN MEDICAL CONDITION BLOOD PRESSURE FOLLOWUP WITH FAMILY DOCTOR. CARDIAC STRESS TEST PER FAMILY DOCTOR. Current Hospital Diet Patient's current hospital diet: AHA Diet (Heart Healthy), Regular Diet Discharge Diet Recommended Diet: AHA Diet (Heart Healthy) Pending Studies Studies pending at discharge: no Medical Emergencies . Who to Call and When: Medical Emergencies: If at any time you feel your situation is an emergency, please call 911 immediately. . Non-Emergent Contact Non-Emergency issues call your: Primary Care Provider . . "Provider Documentation" section prepared by Jeff Redmond. VTE Core Measure Inpt VTE Proph given/why not?: Unfractionated heparin SQ
--- NOTE | 2016-04-25 19:15 | Discharge Summary ---
Discharge Summary Admission Date: Apr 24, 2016 at 20:51 Discharge Date: Apr 25, 2016 Discharge Disposition: Home Principal Diagnosis: VERTIGO Secondary Diagnoses/Problems: (1) HTN (hypertension) Procedures: HEAD CT: No acute intracranial abnormality. NECK MRA: Unremarkable MRA of the neck. No significant stenosis. MRA HEAD: Unremarkable MRA of the intracranial circulation MRI BRAIN: 1. No acute intracranial findings. 2. A few punctate foci of signal abnormality within the white matter suggestive of minimal small vessel disease. ECHO: The left ventricular wall motion is normal. * The LV Ejection Fraction = 55-60%. * The right ventricular chamber size and systolic function is normal. * Grade I diastolic dysfunction, (abnormal relaxation pattern). * There is no significant valvular heart disease. * There is no prior study available for comparison. Medication Reconciliation New Medications: Meclizine HCl (Meclizine HCl) 25 Mg Tab 25 MG PO TID PRN for DIZZINESS, #30 TAB 1 Refill Continued Medications: Atenolol (Tenormin) 25 Mg Tab 25 MG PO DAILY, TAB Calcium/Vitamin D (Os-Lloyd 500 Plus D) Tab 1 TAB PO DAILY, TAB Nifedipine Ext Rel (Procardia Xl Ext Rel) 60 Mg Tabcr 60 MG PO DAILY, TAB Admission Information HPI (per Admitting provider): This is a 65 year old female with PMH of HTN states that today she suddenly developed dizziness and balance problems. States that around 3 PM this afternoon (04/24/16) - she was working outside and suddenly became very dizzy. She waited a few minutes and felt better, so she went to go to her mailbox. On her driveway on the way to the mailbox she developed more dizziness and was not walking straight, and was talking in more of a "Z" pattern. She had no other symptoms, no speech abnormality, no vision abnormality, no muscle weakness on either side; dizziness persisted here in the ER; she was given meclizine, zofran , solu-medrol - attempted to walk again, but was walking into the [place] and doors and continued to feel dizzy. Physical Exam (per Admitting): General Appearance: no apparent distress Head: normocephalic, atraumatic Eyes: normal inspection ENT: hearing grossly normal Neck: supple Respiratory/Chest: lungs clear, normal breath sounds, no respiratory distress, no accessory muscle use Cardiovascular: regular rate, rhythm, no edema, no murmur Abdomen/GI: normal bowel sounds, non tender, soft Back: no muscle spasm Neurologic/Psych: travel coordinator II-XII nml as tested, no motor/sensory deficits, alert , normal mood/affect, oriented x 3 Skin: normal color Lymphatic: no adenopathy Physical Exam (per Admitting): General Appearance: no apparent distress Head: normocephalic, atraumatic Eyes: normal inspection ENT: hearing grossly normal Neck: supple Respiratory/Chest: lungs clear, normal breath sounds, no respiratory distress, no accessory muscle use Cardiovascular: regular rate, rhythm, no edema, no murmur Abdomen/GI: normal bowel sounds, non tender, soft Back: no muscle spasm Neurologic/Psych: travel coordinator II-XII nml as tested, no motor/sensory deficits, alert, normal mood/affect, oriented x 3 Skin: normal color Lymphatic: no adenopathy Hospital Course This is a 65 year old female with PMH of HTN developed vertigo Vertigo patient with dizziness and vertigo difficulty with ambulation also had double This is a 65 year old female with PMH of HTN developed vertigo Vertigo patient with dizziness, vertigo and difficulty with ambulation symptoms improving now ct head negative mri/mra head and mra neck done today unremarkable echo unremarkable monitor in tele neurochecks meclizine prn neurology consulted Uncontrolled HTN on atenolol and nifedipine anxious will monitor hydralazine prn DVT ppx subq heparin FULL CODE DISPOSITION to be determined Total time spent on discharge = 35MINUTES This includes examination of the patient, discharge planning, medication reconciliation, and communication with other providers. Discharge Instructions Discharge Instructions Admission Reason for Admission: Vertigo Discharge Discharge Diagnosis / Problem: vertigo Discharge Goals Goal(s): Decrease discomfort, Improve function Activity Recommendations Activity Limitations: resume your previous activity . Instructions / Follow-Up Instructions / Follow-Up FOLLOWUP WITH FAMILY DOCTOR IN ONE WEEK REPORT TO ER FOR ANY CHNAGE IN MEDICAL CONDITION BLOOD PRESSURE FOLLOWUP WITH FAMILY DOCTOR. CARDIAC STRESS TEST PER FAMILY DOCTOR. Current Hospital Diet Patient's current hospital diet: AHA Diet (Heart Healthy), Regular Diet Discharge Diet Recommended Diet: AHA Diet (Heart Healthy) Pending Studies Studies pending at discharge: no Medical Emergencies . Who to Call and When: Medical Emergencies: If at any time you feel your situation is an emergency, please call 911 immediately. . Non-Emergent Contact Non-Emergency issues call your: Primary Care Provider . . "Provider Documentation" section prepared by Jeff Redmond. VTE Core Measure Inpt VTE Proph given/why not?: Unfractionated heparin SQ
== END 2016-04-25 19:41 | disposition home or self-care (01) ==
LOC: ENRESERVDT → ENRESERVTM → C.EDB 16:40 → C.2T 20:51
PROVIDERS: ADMIT Family Medicine; ATTEND Internal Medicine
DX: R42 Dizziness and giddiness (principal); R26.9 Unspecified abnormalities of gait and mobility; E86.0 Dehydration; I10 Essential (primary) hypertension; I44.0 Atrioventricular block, first degree